=== PATIENT | female | born 1955 | race Caucasian/White ===

== ENCOUNTER → 2024-01-14 15:32 | Outpatient (REF) | payer MEDICARE, SELFPAY | LOC: WDC 15:32 | PROVIDERS: ATTENDING PHYSICIAN Nurse Practitioner Adult Health; FAMILY PHYSICIAN Family Medicine | DX: Z12.31 Encounter for screening mammogram for malignant neoplasm of breast (principal) | CPT/HCPCS: 77063; 77067 ==